=== PATIENT | female | born 1960 | race Two or more races ===

== ENCOUNTER 2019-08-12 23:33 | Emergency (ER) | payer OTHER ==
[~2019-08-12] VITALS: Ht 172.7 cm; Wt 59.0 kg
== END 2019-08-13 09:35 | disposition home or self-care (01) ==
LOC: ER 23:33
DX: S42.292A Other displaced fracture of upper end of left humerus, initial encounter for closed fracture (principal); V49.88XA Car occupant (driver) (passenger) injured in other specified transport accidents, initial encounter; Y93.89 Activity, other specified; Y92.520 Airport as the place of occurrence of the external cause; Y99.8 Other external cause status